=== PATIENT | male | born 1980 | race Caucasian/White ===

== ENCOUNTER 2020-12-21 08:18 | Emergency (ER) | payer OTHER, SELFPAY ==
[2020-12-21 08:28] VITALS: BP 121/101; PULSE 105; TEMP 36.7; O2SAT 97
--- NOTE | 2020-12-21 09:40 | ED.GENADUL_ITS ---
Discharge Plan Disposition Patient Disposition: HOME Condition: Good Discharge Details Clinical Impression: Encounter for screening laboratory testing for COVID-19 virus, H/O tinea corporis Primary Care Provider: None,None ED Provider: Meryl Sparks Home Meds and New Rx's Prescriptions: New clotrimazole 1 % cream 1 applic topical BID Qty: 90 RF: 0 Discharge Instructions Additional Instructions: Please isolate without exposure to others until your Covid test returns, will likely be in 24 to 36 hours You should not return to work until your Covid test returns the ringworm is contagious, use medications as prescribed Also take the medication as prescribed for your lower extremities If you have contraindicated Stand Alone Forms: Work Release Medical Decision Making Patient is alert and oriented, he has chronic he is afebrile and nontoxic, no hypoxia, he is aware that he needs isolate until his Covid test returns and a work note was supplied Patient was placed on topical antifungals as he does not have a PCP and follow- up regarding liver enzymes will be a challenge, he is aware that ringworm is highly contagious and that he may need oral medication, he will present for reevaluation as needed Patient discharged home in stable condition with stable vitals Given low threshold to return with new or worsening complaints No indication for chest x-ray at this time, patient is not hypoxic or tachypnea Repeat blood pressure 150/70, instructed to have this rechecked by primary care physician, repeat heart rate 92 Placed on care management list for follow-up Differential Diagnosis Differential Diagnosis: Cellulitis, tinea curious, COVID-19, flulike illness Medical Records Medical records reviewed: Yes I reviewed the patient's medical records. HPI General Mode of arrival: ambulatory . Date/Time Provider Initiated Documentation: 12/21/20 08:33 . Limitations to Documentation: no limitations . Information obtained by: patient . HPI Narrative: This 40-year-old gentleman who is otherwise healthy presents with report of rash to bilateral lower extremities with some worsening for the past 3 weeks. He denies any known contact with similar rashes. He also states for the past 2 days he has had chills and cough with runny nose. He denies any shortness of breath. He denies any known sick contacts but does work in a kitchen with 5 other people reportedly. He feels like he may have the flu. He does smoke tobacco. He denies any new calf pain or swelling. He describes the rash as being itchy on extremities. He denies any history of IV drug abuse. Related Data Home Medications Medication Instructions Recorded Confirmed clotrimazole 1 applic TOPICAL BID #90 g 12/21/20 Previous Rx's Medication Instructions Recorded clotrimazole 1 applic TOPICAL BID #90 g 12/21/20 Allergies Allergy/AdvReac Type Severity Reaction Status Date / Time No Known Allergies Allergy Unverified 12/21/20 08:30 General Stated Complaint: RashLesion RAGHU: 5 Review of Systems Narrative: Review of systems obtained x7 aside from where indicated in HPI PFSH Social History Smoking/Tobacco Use Status: Current every day Tobacco Type: cigarettes Smoking risk assessment performed?: Yes Alcohol Intake: never Drug use: Occasionally Substance use type: marijuana Do you feel safe at home: Yes Do you feel safe in your relationship?: Yes Exam Const Orientation: alert and oriented x3 HENMT Other: No sinus tenderness Eyes Pupils: PERRL Resp Effort & Inspection: normal respiratory effort Auscultation: clear to auscultation bilaterally Cardio Rate: regular rate Rhythm: regular rhythm Skin Other: Well demarcated excoriated lesions in a ring pattern to bilateral lower extremities, diffusely to lower extremities, neurovascularly intact, nontender Neuro General: patient alert and patient oriented x3 Course Vital Signs Vital signs: Vital Signs Temperature 36.7 C 12/21/20 08:28 Pulse 105 H 12/21/20 08:28 Blood Pressure 121/101 H 12/21/20 08:28 Pulse Oximetry 97 12/21/20 08:28 Temperature 36.7 C 12/21/20 08:28 Temperature Source Temporal Artery Scan 12/21/20 08:28 Pulse 105 H 12/21/20 08:28 Respiratory Effort Non-Labored 12/21/20 08:30 Blood Pressure 121/101 H 12/21/20 08:28 Blood Pressure Position Sitting 12/21/20 08:28 Pulse Oximetry 97 12/21/20 08:28 Oxygen Delivery Method Room Air 12/21/20 08:28 Oxygen Flow Rate 0 12/21/20 08:28 Pain Level 0 12/21/20 08:28
[2020-12-22 14:27] LABS: COVID-19 RT-PCR UVMMC Result Negative (Negative)
--- NOTE | 2020-12-23 12:03 | NUR.NOTE ---
Nursing Note: Patient called asking for his results if his COVID test. After consulting with Dr. Conn I gave the patient his results of negative. Kady Orr
== END 2020-12-21 09:53 | disposition home or self-care (01) ==
PROVIDERS: Emergency Provider Physician Assistant
DX: B35.4 Tinea corporis (principal); Z20.822 Contact with and (suspected) exposure to COVID-19
CPT/HCPCS: 99283; U0003

== ENCOUNTER 2021-02-25 23:59 | Emergency (ER) | payer OTHER, SELFPAY ==
[2021-02-26 00:03] VITALS: BP 123/76; PULSE 81; RESP 16; TEMP 36.9; O2SAT 99
--- NOTE | 2021-02-26 00:13 | ED.GENADUL_ITS ---
Discharge Plan Disposition Patient Disposition: HOME Condition: Good Discharge Details Clinical Impression: Tinea corporis Primary Care Provider: None,None ED Provider: Russ Calderon Home Meds and New Rx's Prescriptions: New ketoconazole 2 % cream 1 applic topical BID Qty: 30 RF: 0 Discharge Instructions Instructions: Tinea Corporis (ED) Additional Instructions: At this time you have evidence of a fungal infection. Please apply the ketoconazole ointment twice daily as directed. It is been sent to your pharmacy on file. Please also take 10 mg of loratadine [id number] every day, and 25 mg Benadryl at night as needed. Try to keep the area in your groin and legs dry. If you notice any worsening of your symptoms, or any new symptoms such as vomiting, diarrhea, fever, chills, shortness of breath, chest pain, numbness, weakness, or fainting , please return immediately to the emergency department for reevaluation. Please follow up with your primary care provider as soon as possible for reassessment and reevaluation. As always, it was a pleasure participating in your medical care today. Medical Decision Making Pleasant 40-year-old male presents today for evaluation of rash in his lower extremities. Patient states that a few months ago he developed ringworm on his groin and leg area while he was in [place]. He was treated with topical antifungals which resolved his symptoms, however as he began worsening again now in a hot wet environment at a local restaurant he is developed the symptoms again. He does note longer has the cream. He admits to itchiness, admits to a lesion on his right armpit, but aside for that in his legs no other lesions. No other new detergent or soaps. No other housemates with similar findings. No other complaints this time. No other modifying factors. No new medications. Physical exam demonstrates signs and symptoms consistent with tinea corporis ove r the patient right groin and posterior thigh region. No current clinical evidence of staph scalded skin syndrome, erythema multiforme, erythema migrans, toxic epidermal necrolysis, Canales-Silvino syndrome, Kawasaki-like rash, meningococcemia, pemphigus vulgaris, or necrotizing fasciitis. We will give her prescription for topical antifungal, as well as recommendations for normal antihistamine. The patient failed therapy with this she will need oral antifungal therapy, however I do not think that is indicated at this time clinically. I have extensively reviewed the treatment plan and discharge instructions with the patient. I have addressed all patient concerns at this time. The patient was made aware of what symptoms to monitor for that would warrant a return to the emergency department. Discussed the plan with the patient, they demonstrate verbal understanding and agreement with our assessment and plan at this time. The documentation in this chart was dictated using [employer] dictation software. Please excuse any dictation errors. HPI General Date/Time Provider Initiated Documentation: 02/26/21 00:12 . HPI Narrative: Pleasant 40-year-old male presents today for evaluation of rash in his lower extremities. Patient states that a few months ago he developed ringworm on his groin and leg area while he was in [place]. He was treated with topical antifungals which resolved his symptoms, however as he began worsening again now in a hot wet environment at a local restaurant he is developed the symptoms again. He does note longer has the cream. He admits to itchiness, admits to a lesion on his right armpit, but aside for that in his legs no other lesions. No other new detergent or soaps. No other housemates with similar findings. No other complaints this time. No other modifying factors. No new medications. Related Data Home Medications Medication Instructions Recorded Confirmed ketoconazole 1 applic TOPICAL BID #30 g 02/26/21 Previous Rx's Medication Instructions Recorded ketoconazole 1 applic TOPICAL BID #30 g 02/26/21 Allergies Allergy/AdvReac Type Severity Reaction Status Date / Time No Known Allergies Allergy Unverified 02/26/21 00:12 General Stated Complaint: RashLesion RAGHU: 4 Review of Systems All systems reviewed & are unremarkable except as noted in HPI and below PFSH Social History Smoking/Tobacco Use Status: Current every day Tobacco Type: cigarettes Smoking risk assessment performed?: Yes Alcohol Intake: never Drug use: Occasionally Substance use type: marijuana Do you feel safe at home: Yes Do you feel safe in your relationship?: Yes Exam Narrative Exam Narrative: 1.Const: Well-nourished, Well-developed, appearing stated age 2.Eyes: PERRL, no conjunctival injection, and symmetrical lids. 3.ENT: Atraumatic external nose and ears. Moist MM. Neck: Symmetric, trachea midline, No thyromegaly. 4.CVS: +S1/S2, No murmurs or gallops. Peripheral pulses 2+ and equal in all extremities. Brisk capillary refill in all extremities. 5.RESP: Unlabored respiratory effort. Clear to auscultation bilaterally. No wheezes rales or rhonchi 6.GI: Soft, Nontender/Nondistended, No hepatosplenomegaly. No guarding or rebound. 7.MSK: Normocephalic/Atraumatic, Extremities w/o deformity or ttp No cyanosis or clubbing, Normal movement of all extremities 8.Skin: Warm, Dry. Patient mildly erythematous rash with slight clearing around the center of the raised border on the circumference over his anterior medial thighs and slight posterior thighs as well as a single lesion on his right axillary region. Symptoms appear consistent with tinea corporis. Negative Nikolsky sign. No large vesicles or bulla. No palpable purpura. No oral lesions. No mucosal lesions. No evidence of severe cellulitis. No evidence of vaccine preventable rash. 9.Neuro: quality inspector II-XII grossly intact. Sensation grossly intact, no focal neurologic deficits. 10.Psych: (AAO) x3. Appropriate mood and affect Course Vital Signs Vital signs: Vital Signs Temperature 36.9 C 02/26/21 00:03 Pulse 81 02/26/21 00:03 Respiratory Rate 16 02/26/21 00:03 Blood Pressure 123/76 02/26/21 00:03 Pulse Oximetry 99 02/26/21 00:03 Temperature 36.9 C 02/26/21 00:03 Temperature Source Skin 02/26/21 00:03 Pulse 81 02/26/21 00:03 Respiratory Rate 16 02/26/21 00:03 Blood Pressure 123/76 02/26/21 00:03 Blood Pressure Position Sitting 02/26/21 00:03 Pulse Oximetry 99 02/26/21 00:03 Oxygen Delivery Method Room Air 02/26/21 00:03 Oxygen Flow Rate 0 02/26/21 00:03
== END 2021-02-26 00:25 | disposition home or self-care (01) ==
PROVIDERS: Emergency Provider Student in an Organized Health Care Education/Training Program
DX: B35.4 Tinea corporis (principal)
CPT/HCPCS: 99283

== ENCOUNTER 2021-03-02 13:53 | Emergency (ER) | payer OTHER, SELFPAY ==
[2021-03-02 13:58] VITALS: BP 149/83; PULSE 87; RESP 18; TEMP 36.6; O2SAT 98
--- NOTE | 2021-03-02 14:29 | ED.GENADUL_ITS ---
Discharge Plan Disposition Patient Disposition: HOME Condition: Stable Discharge Details Clinical Impression: Tinea corporis Primary Care Provider: None,None ED Provider: Meryl Sparks Home Meds and New Rx's Prescriptions: New ketoconazole 2 % cream 1 applic topical BID Qty: 60 RF: 2 No Action ketoconazole 2 % cream 1 applic topical BID Qty: 30 RF: 0 Discharge Instructions Instructions: Skin Yeast Infection (ED) Additional Instructions: Try to wear breathable material Have given you an additional several tubes of the antifungal medication, if this does not resolve your symptoms, you will likely need to go on oral medication, you will need blood work drawn before this medication can be initiated Establish care with primary care doctor Discharge Data Discharge Date/Time-TO BE ENTERED AT DEPARTURE: 03/02/21 14:48 Medical Decision Making I talked about potentially ordering some blood work and starting the patient on oral fluconazole, he is after he has only been on his topicals for the past 3 days, he will continue for 14-day supply and will take oral should he have persistent symptoms Medical Records Medical records reviewed: Yes I reviewed the patient's medical records. HPI General Mode of arrival: ambulatory . Date/Time Provider Initiated Documentation: 03/02/21 14:12 . Limitations to Documentation: no limitations . Information obtained by: patient . HPI Narrative: This 40-year-old male presents with report of rashes to bilateral lower extremities. Patient states the rash is painful. He states it is very itchy as well. 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 He states the environment is very warm. He states that he has been on his antifungal for the past 3 days. He denies any fever or chills. He denies any chest pain or shortness of breath. He denies dizziness or weakness. He presents only he is almost completed with his new prescription he was previously prescribed. Related Data Home Medications Medication Instructions Recorded Confirmed ketoconazole 1 applic TOPICAL BID #30 g 02/26/21 03/02/21 ketoconazole 1 applic TOPICAL BID #60 g 03/02/21 Previous Rx's Medication Instructions Recorded ketoconazole 1 applic TOPICAL BID #30 g 02/26/21 ketoconazole 1 applic TOPICAL BID #60 g 03/02/21 Allergies Allergy/AdvReac Type Severity Reaction Status Date / Time No Known Allergies Allergy Unverified 03/02/21 14:00 General Stated Complaint: Recheck RAGHU: 5 Review of Systems Narrative: Review of systems negative x3 aside from where indicated in HPI PFSH Social History Smoking/Tobacco Use Status: Current every day Tobacco Type: cigarettes Smoking risk assessment performed?: Yes Alcohol Intake: never Drug use: Occasionally Substance use type: marijuana Do you feel safe at home: Yes Do you feel safe in your relationship?: Yes Exam Const General: cooperative, comfortable and no acute distress Skin Other: Well demarcated erythematous lesion with silver scale noted to diffuse upper leg Course Vital Signs Vital signs: Vital Signs Temperature 36.6 C 03/02/21 13:58 Pulse 87 03/02/21 13:58 Respiratory Rate 18 03/02/21 13:58 Blood Pressure 149/83 H 03/02/21 13:58 Pulse Oximetry 98 03/02/21 13:58 Temperature 36.6 C 03/02/21 13:58 Temperature Source Skin 03/02/21 13:58 Pulse 87 03/02/21 13:58 Respiratory Rate 18 03/02/21 13:58 Blood Pressure 149/83 H 03/02/21 13:58 Blood Pressure Position Sitting 03/02/21 13:58 Pulse Oximetry 98 03/02/21 13:58 Oxygen Delivery Method Room Air 03/02/21 13:58 Oxygen Flow Rate 0 03/02/21 13:58 Pain Level 2 03/02/21 13:58
== END 2021-03-02 14:48 | disposition home or self-care (01) ==
PROVIDERS: Emergency Provider Physician Assistant; PCP Family Medicine
DX: B35.4 Tinea corporis (principal)
CPT/HCPCS: 99283; 99282